=== PATIENT | male | born 1935 | race Caucasian/White ===

== ENCOUNTER → 2017-07-02 | Outpatient (CLI) | payer OTHER ==
[~2017-07-02] MED LIST: ASPI325T PO; ATEN1TAB73 PO; CLOP75 PO; LEVO.15 PO; ZOCO80TA PO
--- NOTE | 2017-07-08 10:59 | RSPPFT ---
DATE OF PROCEDURE: 07/02/17 COMMENTS: VOLUMES DYNAMIC: FVC and FEV1 normal. STATIC: TLC, RV and FRC normal. FLOWS: FEV1% normal; FEF 25-75 mildly reduced. DIFFUSION: Mildly reduced. FLOW VOLUME LOOP: Terminal airflow obstruction. IMPRESSION: Very mild obstructive ventilatory defect with no hyperinflation and no significant improvement post-bronchodilator. There is also a mild reduction in diffusion.
== END ==
LOC: HRSP 10:00
PROVIDERS: ATTEND Internal Medicine
DX: J18.9 Pneumonia, unspecified organism (principal); R06.02 Shortness of breath
CPT/HCPCS: 94060; 94618; 94726; 94729